=== PATIENT | male | born 1960 | race Asian ===

== ENCOUNTER 2020-10-15 13:26 | Emergency (ER) | payer BC ==
[~2020-10-15] VITALS: Ht 170.2 cm; Wt 61.2 kg
[~2020-10-15 13:26] MED LIST: OLME40TA12 PO; PIOG15TA8 PO
[2020-10-15 13:33] VITALS: BP_SYST 140
[2020-10-15] MEDS ORDERED: IBUP-1969 PO (14:29)
[2020-10-15 15:19] VITALS: BP_SYST 140
== END 2020-10-15 15:19 | disposition home or self-care (01) ==
LOC: SED 13:26
DX: S82.841A Displaced bimalleolar fracture of right lower leg, initial encounter for closed fracture (principal); I10 Essential (primary) hypertension; E11.9 Type 2 diabetes mellitus without complications; Z79.899 Other long term (current) drug therapy; W18.39XA Other fall on same level, initial encounter; Y93.89 Activity, other specified; Y92.89 Other specified places as the place of occurrence of the external cause; Y99.8 Other external cause status
CPT/HCPCS: 99283

== ENCOUNTER 2020-10-21 10:25 | Day surgery (SDC) | payer BC, SELFPAY ==
[2020-10-17 11:41] LABS: BASOPHILS % (AUTO) 0.4 % (0.0-2.0); EOSINOPHILS % (AUTO) 0.9 % (0.0-4.0); HEMATOCRIT 40.5 % (36-54); HEMOGLOBIN 13.9 g/dL (14.0-18.0); LYMPHOCYTES # (AUTO) 0.8 K/uL (1.0-5.5); LYMPHOCYTES % (AUTO) 15.3 % (20.5-51.5); MEAN CORPUSCULAR HEMOGLOBIN 30 pg (27-31); MEAN CORPUSCULAR HGB CONC 34 % (32-36); MEAN CORPUSCULAR VOLUME 87 fL (79.0-98.0); MONOCYTES # (AUTO) 0.3 K/uL (0.0-1.0); MONOCYTES % (AUTO) 5.9 % (1.7-9.3); NEUTROPHILS # (AUTO) 3.8 K/uL (1.8-7.7); NEUTROPHILS % (AUTO) 77.5 % (40.0-70.0); PLATELET COUNT (AUTO) 199 K/uL (130-430); RED BLOOD CELL COUNT(AUTO) 4.65 MIL/uL (4.2-6.2); RED CELL DISTRIBUTION WIDTH 13.4 % (9.0-15.0); WHITE BLOOD COUNT (AUTO) 4.9 K/uL (4.8-10.8)
[2020-10-17 11:48] LABS: BILIRUBIN,URINE NEGATIVE (NEGATIVE); BLOOD, URINE NEGATIVE (NEGATIVE); CLARITY/URINE CLEAR (CLEAR); COLOR,URINE YELLOW (YELLOW); GLUCOSE,URINE 2+ (NEGATIVE); KETONES,URINE TRACE (NEGATIVE); LEUKOCYTE ESTERASE ,URINE NEGATIVE (NEGATIVE); NITRITE, URINE NEGATIVE (NEGATIVE); PH,URINE 5.5 (5.0-8.0); PROTEIN URINE NEGATIVE (NEGATIVE); UROBILINOGEN,URINE 0.2 (0.2-1.0)
[2020-10-17 12:04] LABS: CALCIUM 9.1 mg/dL (8.4-11.0); CREATININE 0.98 mg/dL (0.55-1.30)
[2020-10-17 12:09] LABS: PROTHROMBIN TIME 9.9 SECS (9.5-12.5)
[2020-10-17 13:16] LABS: BACTERIA,URINE FEW /HPF (None Seen); RBC,URINE 0-3 /HPF (0-3); WBC,URINE 0-3 /HPF (0-3)
[~2020-10-21] VITALS: Ht 172.7 cm; Wt 77.1 kg
[~2020-10-21 10:25] MED LIST changes: +DEXAMETHASONE SOD PHOSPHATE 4 MG/ML VIAL IVP ONE; +IBUP-1969 PO; +LIDOCAINE/EPI 1% 1:100000 20 ML VIAL INJ ONE; +LR 1,000 ML IV.SOLN IV ONE; +MIDAZOLAM HCL 5 MG/5 ML VIAL IVP ONE; +NS IRRIG SOLN 1000 ML IR ONE; +OXYMETAZOLINE HCL 0.05% NASAL SPRAY NS ONE; +PROPOFOL 200MG/ 20ML VIAL (DIPRIVAN) IV ONE; +ROCURONIUM BROMIDE 10 MG/ML (ZEMURON) IV ONE; +SEVOFLURANE 15 MIN GAS INH ONE; +SUCCINYLCHOLINE CHLORIDE 20 MG/ML(QUELICIN) IVP ONE; +SUGAMMADEX SODIUM 200 MG/2 ML VIAL IV ONE; +fentaNYL CITRATE/PF 100 MCG/2 ML AMP IVP ONE
[2020-10-21] MEDS ORDERED: BUPIVACAINE /EPINEPHRINE/PF 0.25% 30 ML VIAL INJ ONE (12:15)
[2020-10-21] MEDS ORDERED: SEVOFLURANE 15 MIN GAS INH ONE (12:15)
[2020-10-21] MEDS ORDERED: DEXAMETHASONE SOD PHOSPHATE 4 MG/ML VIAL IVP ONE (12:15)
[2020-10-21] MEDS ORDERED: PROPOFOL 200MG/ 20ML VIAL (DIPRIVAN) IV ONE (12:15)
[2020-10-21] MEDS ORDERED: LR 1,000 ML IV.SOLN IV ONE (12:15)
[2020-10-21] MEDS ORDERED: MIDAZOLAM HCL 5 MG/5 ML VIAL IVP ONE (12:15)
[2020-10-21] MEDS ORDERED: KETOROLAC TROMETHAMINE 30 MG VIAL IVP ONE (12:15)
[2020-10-21] MEDS ORDERED: fentaNYL CITRATE/PF 100 MCG/2 ML AMP IVP ONE (12:15)
[2020-10-21] MEDS ORDERED: NS IRRIG SOLN 1000 ML IR ONE (12:15)
[2020-10-21] MEDS ORDERED: CEFAZOLIN 1 GM IVPB PREMIX 50 ML IV ONE (12:15)
[2020-10-21] MEDS ORDERED: NS IRRIG SOLN 5000 ML IR ONE (12:15)
[2020-10-21] MEDS ORDERED: MEPERIDINE HCL 10 MG/ML SYRINGE IV ONE (12:15)
[2020-10-21] MEDS ORDERED: POLYMYXIN 500,000/BACIT.10,000 UNITS in NS IRR 1 L IR ONE (12:19)
[2020-10-21] MEDS ORDERED: ONDANSETRON HCL 4 MG/2 ML VIAL IVP PRN (13:00)
[2020-10-21] MEDS ORDERED: LR 1,000 ML IV SCH (13:00)
[2020-10-21] MEDS ORDERED: MEPERIDINE HCL/PF 25 MG/ML DISP.SYRIN IVP PRN (13:00)
[2020-10-21] MEDS ORDERED: HYDROmorphone 1 MG/ML INJ. CARTRIDGE IVP PRN ×2 (13:00)
[2020-10-21] MEDS ORDERED: METOCLOPRAMIDE HCL 10 MG/2 ML VIAL IVP PRN (13:00)
[2020-10-21 15:31] VITALS: BP_SYST 144
== END 2020-10-21 16:20 | disposition home or self-care (01) ==
LOC: SDS 10:25 → SMU 10:26 → SDS 16:20
PROVIDERS: ATTEND Orthopaedic Surgery
DX: S82.841A Displaced bimalleolar fracture of right lower leg, initial encounter for closed fracture (principal); I10 Essential (primary) hypertension; E11.40 Type 2 diabetes mellitus with diabetic neuropathy, unspecified; Z20.822 Contact with and (suspected) exposure to COVID-19; Z79.84 Long term (current) use of oral hypoglycemic drugs; W19.XXXA Unspecified fall, initial encounter; Y93.89 Activity, other specified; Y92.89 Other specified places as the place of occurrence of the external cause; Y99.8 Other external cause status; Z79.01 Long term (current) use of anticoagulants; Z79.899 Other long term (current) drug therapy
CPT/HCPCS: 27814; 36415; 71046; 80048; 81000; 85025; 85610; 85730; 93005; C1713 ×4; C1763; C9399; J0330; J0690; J1100; J1885; J2175; J2250; J2704; J3010; J3490; J7120; U0003; 76001